=== PATIENT | female | born 1955 | race Caucasian/White ===

== ENCOUNTER → 2016-10-23 | Outpatient (CLI) | payer MEDICAID ==
[~2016-10-23] MED LIST: ACIDOPHILUS PO; ALBUTEROL2.5 MG/3 M IH; BENTYL 20MG20 MG/TAB PO; CHILDREN'S ASPI81 M1; CIPRO 500MG TA500 MG PO; CLEOCIN HC150 MG/CAP PO; CLEOCIN HCL150 M1 PO; CLONAZEPAM0.5 M1 PO; CYCLOBENZAPRINE10 MG PO; HYDROXYZINE HYD50 M1 PO; IBUPROFEN800 MG PO; IMODIUM 2MG CAPS2 MG PO; KLONOPIN0.5 MG PO; KLONOPIN1 MG PO; LAMICTAL25 MG PO; LEXAPRO5 MG PO; METRONIDAZOLE500 MG PO; MIRTAZAPINE15 MG PO; NORCO 325 MG-51 TA1 PO; NORCO 325 MG-51 TAB PO; ONDANSETRON4 M1 PO; PRILOSEC 20MG20 MG PO; PROAIR RESPICL90 MCG IH; SIMVASTATIN20 MG PO; SINGULAIR10 MG PO; WELLBUTRIN SR150 M1 PO; ZOFRAN ODT8 MG PO
== END ==
LOC: RAD 08:18
DX: M79.642 Pain in left hand (principal)

== ENCOUNTER → 2016-10-28 | Outpatient (CLI) | payer MEDICAID | LOC: RAD 08:04 | DX: M25.542 Pain in joints of left hand (principal) ==

== ENCOUNTER → 2017-01-31 | Outpatient (CLI) | payer MEDICAID ==
[~2017-01-31] VITALS: Ht 167.6 cm; Wt 73.2 kg
[2017-01-31 15:51] VITALS: BP 136/96
[2017-01-31 19:54] VITALS: BP 92/60
== END ==
LOC: AMSURD 15:43
DX: E86.0 Dehydration (principal); R11.2 Nausea with vomiting, unspecified; R51 Headache
CPT/HCPCS: J0696; J1885; J2405; J7030

== ENCOUNTER → 2017-04-07 | Outpatient (CLI) | payer MEDICAID ==
[2017-01-31 19:54] VITALS: BP 92/60
== END ==
LOC: RAD 07:18
DX: M25.542 Pain in joints of left hand (principal); M25.541 Pain in joints of right hand

== ENCOUNTER → 2017-04-22 | Outpatient (CLI) | payer MEDICAID ==
[2017-01-31 19:54] VITALS: BP 92/60
== END ==
LOC: MAMMO 09:10
DX: Z12.31 Encounter for screening mammogram for malignant neoplasm of breast (principal)
CPT/HCPCS: G0202

== ENCOUNTER 2018-03-26 10:00 | Outpatient (RCR) | payer MEDICAID ==
[2017-01-31 19:54] VITALS: BP 92/60
== END 2018-03-26 10:30 | disposition home or self-care (01) ==
LOC: OT 10:00
DX: Z47.1 Aftercare following joint replacement surgery (principal); Z96.691 Finger-joint replacement of right hand

== ENCOUNTER 2018-05-19 11:30 | Outpatient (RCR) | payer MEDICAID ==
[2017-01-31 19:54] VITALS: BP 92/60
== END 2018-05-19 12:00 | disposition home or self-care (01) ==
LOC: OT 11:30
DX: Z47.89 Encounter for other orthopedic aftercare (principal)

== ENCOUNTER 2019-02-28 12:47 | Emergency (ER) | payer MEDICAID ==
[~2019-02-28] VITALS: Ht 167.6 cm; Wt 70.9 kg
[2019-02-28] MEDS ORDERED: ZOVIRAX400 M1 PO (13:10)
[2019-02-28] MEDS ORDERED: ALBUTEROL2.5 MG/3 M IH (13:14)
[2019-02-28] MEDS ORDERED: IPRATROPIUM BROM3 M1 IH (13:15)
[2019-02-28] MEDS ORDERED: WELLBUTRIN XL150 M2 PO (13:15)
[2019-02-28] MEDS ORDERED: ZYRTEC ALLERGY10 MG PO (13:16)
[2019-02-28] MEDS ORDERED: DICLOFENAC SOD100 GM TP (13:18)
[2019-02-28] MEDS ORDERED: VOLTAREN 75 DR75 MG PO (13:19)
[2019-02-28] MEDS ORDERED: BENTYL 20MG20 MG/TAB PO (13:23)
[2019-02-28] MEDS ORDERED: FENOFIBRATE MI134 MG PO (13:24)
[2019-02-28] MEDS ORDERED: FLUTICASON0.05 MG/AC NS (13:26)
[2019-02-28] MEDS ORDERED: HYDROXYZINE HYD50 M1 PO (13:28)
[2019-02-28] MEDS ORDERED: OMEPRAZOLE40 MG PO (13:29)
[2019-02-28] MEDS ORDERED: VITAMIN B12 PO (13:30)
[2019-02-28 14:40] VITALS: BP 130/86
== END 2019-02-28 14:37 | disposition home or self-care (01) ==
LOC: ED 12:47
DX: M25.561 Pain in right knee (principal); F31.9 Bipolar disorder, unspecified; F41.9 Anxiety disorder, unspecified; E89.0 Postprocedural hypothyroidism; K58.9 Irritable bowel syndrome, unspecified; Z90.710 Acquired absence of both cervix and uterus; Z79.82 Long term (current) use of aspirin; Z79.51 Long term (current) use of inhaled steroids

== ENCOUNTER → 2019-05-12 | Outpatient (CLI) | payer MEDICAID ==
[~2019-05-12] MED LIST changes: +DICLOFENAC SOD100 GM TP; +FENOFIBRATE MI134 MG PO; +FLUTICASON0.05 MG/AC NS; +IPRATROPIUM BROM3 M1 IH; +OMEPRAZOLE40 MG PO; +VITAMIN B12 PO; +VOLTAREN 75 DR75 MG PO; +WELLBUTRIN XL150 M2 PO; +ZOVIRAX400 M1 PO; +ZYRTEC ALLERGY10 MG PO
== END ==
LOC: RAD 08:10
DX: M17.11 Unilateral primary osteoarthritis, right knee (principal); M25.861 Other specified joint disorders, right knee; Z98.890 Other specified postprocedural states

== ENCOUNTER → 2019-10-13 | Outpatient (CLI) | payer MEDICAID | LOC: RAD 07:30 | DX: M17.11 Unilateral primary osteoarthritis, right knee (principal) ==

== ENCOUNTER 2020-02-11 09:30 | Outpatient (RCR) | payer MEDICAID | END 2020-02-11 10:00 | disposition still patient (30) | LOC: PT 09:30 | DX: M25.561 Pain in right knee (principal); Z96.651 Presence of right artificial knee joint ==

== ENCOUNTER → 2020-05-24 | Outpatient (CLI) | payer MEDICAID | LOC: RAD 07:30 | DX: Z47.1 Aftercare following joint replacement surgery (principal); Z96.651 Presence of right artificial knee joint ==

== ENCOUNTER → 2020-06-27 | Outpatient (CLI) | payer MEDICAID | LOC: MAMMO 11:20 | DX: Z12.31 Encounter for screening mammogram for malignant neoplasm of breast (principal) ==

== ENCOUNTER → 2020-07-06 | Day surgery (SDC) | payer MEDICAID | LOC: MSO 06:56 | DX: Z12.11 Encounter for screening for malignant neoplasm of colon (principal); Z86.010 Personal history of colon polyps; Z88.0 Allergy status to penicillin; J44.9 Chronic obstructive pulmonary disease, unspecified; D64.9 Anemia, unspecified; Z90.710 Acquired absence of both cervix and uterus; F17.210 Nicotine dependence, cigarettes, uncomplicated | CPT/HCPCS: 00812; J2704; J7120 ==

== ENCOUNTER → 2020-12-13 | Outpatient (CLI) | payer MEDICARE, MEDICAID | LOC: RAD 09:30 | DX: M17.12 Unilateral primary osteoarthritis, left knee (principal); M19.042 Primary osteoarthritis, left hand; Z96.651 Presence of right artificial knee joint ==

== ENCOUNTER 2021-01-18 10:04 | Outpatient (RCR) | payer MEDICARE, MEDICAID | END 2021-04-18 | disposition still patient (30) | LOC: OT | DX: M25.542 Pain in joints of left hand (principal) ==

== ENCOUNTER → 2021-08-21 | Outpatient (CLI) | payer MEDICARE, MEDICAID | LOC: MAMMO 14:28 | DX: Z12.31 Encounter for screening mammogram for malignant neoplasm of breast (principal) ==

== ENCOUNTER → 2021-12-06 | Outpatient (CLI) | payer MEDICARE, MEDICAID | LOC: RAD 14:20 | DX: J06.9 Acute upper respiratory infection, unspecified (principal) ==

== ENCOUNTER 2022-02-05 13:54 | Emergency (ER) | payer MEDICARE, MEDICAID ==
[~2022-02-05] VITALS: Ht 167.6 cm; Wt 71.8 kg
[2022-02-05] MEDS ORDERED: CLONAZEPAM0.5 M1 PO ×2 (14:26→14:27)
[2022-02-05] MEDS ORDERED: WELLBUTRIN XL150 M2 PO (14:26)
[2022-02-05] MEDS ORDERED: LAMOTRIGINE100 M3 PO (14:27)
[2022-02-05] MEDS ORDERED: ONDANSETRON ODT8 MG PO (14:29)
[2022-02-05] MEDS ORDERED: FEXOFENADINE HY60 MG PO (14:30)
[2022-02-05] MEDS ORDERED: FEXOFENADINE H180 M1 PO (14:33)
[2022-02-05] MEDS ORDERED: SINGULAIR 110 MG/TAB PO (14:34)
[2022-02-05 15:36] LABS: BASO # 0.11 K/mm3 (0.02-0.10); EOS # 0.34 K/mm3 (0.04-0.40); EOS % 2.8 % (1.0-5.0); HEMATOCRIT 36.1 % (37.0-47.0); HEMOGLOBIN 11.8 g/dL (12.5-16.0); LYMPH# 3.32 K/mm3 (1.50-4.00); MEAN CELL VOLUME 88 fl (78-100); MEAN CORPUSCULAR HEMOGLOBIN 29 pg (27-31); MEAN CORPUSCULAR HGB CONC 33 g/dL (33-37); MEAN PLATELET VOLUME 9.6 fl (7.4-10.4); MONO # 1.26 K/mm3 (0.20-0.80); NEU # 6.87 K/mm3 (1.40-6.50); PLATELET COUNT 354 K/mm3 (130-400); RED BLOOD COUNT 4.12 M/mm3 (4.10-5.30); RED CELL DISTRIBUTION WIDTH 14.6 % (11.5-14.5)
[2022-02-05 15:59] LABS: ALBUMIN 4.3 g/dL (3.4-4.8); POTASSIUM 3.6 mmol/L (3.5-5.1); SODIUM 139 mmol/L (136-145)
[2022-02-05 16:01] LABS: CALCIUM 9.6 mg/dL (8.3-10.5)
[2022-02-05 16:02] LABS: GLUCOSE 72 mg/dL (65-105); TOTAL PROTEIN 6.8 g/dL (6.2-8.1)
[2022-02-05 16:03] LABS: CARBON DIOXIDE 24 mmol/L (23-31)
[2022-02-05 16:04] LABS: TOTAL BILIRUBIN 0.3 mg/dL (0.2-1.2)
[2022-02-05 16:07] LABS: AST-SGOT 15 U/L (5-34)
[2022-02-05 16:08] LABS: ALT/SGPT 14 U/L (0-55)
[2022-02-05 16:21] LABS: TROPONIN-I < 0.030 ng/mL (<0.030)
[2022-02-05 16:28] LABS: URINE APPEARANCE CLEAR; URINE BILIRUBIN NEGATIVE (NEGATIVE); URINE BLOOD 50 ery/uL (NEGATIVE); URINE COLOR YELLOW; URINE GLUCOSE NEGATIVE (NEGATIVE); URINE KETONE NEGATIVE (NEGATIVE); URINE LEUKOCYTE ESTERASE NEGATIVE (NEGATIVE); URINE NITRATE NEGATIVE (NEGATIVE); URINE PROTEIN(semi-quant) TRACE (NEGATIVE); URINE UROBILINOGEN NORMAL (NORMAL); URINE WBC 0-1 /hpf (0-3)
[2022-02-05 16:29] LABS: URINE MUCUS PRESENT (NOT PRESENT)
[2022-02-05 16:40] LABS: PROTHROMBIN TIME 10.4 SECONDS (9.0-12.0)
[2022-02-05] MEDS ORDERED: ANTIVERT12.5 M1 PO (17:19)
[2022-02-05 17:42] VITALS: BP 157/107
== END 2022-02-05 17:42 | disposition home or self-care (01) ==
LOC: ED 13:54
PROVIDERS: Physician Assistant
DX: R42 Dizziness and giddiness (principal); R11.0 Nausea; F17.210 Nicotine dependence, cigarettes, uncomplicated
CPT/HCPCS: J7030

== ENCOUNTER → 2022-03-13 | Outpatient (CLI) | payer MEDICARE, MEDICAID ==
[~2022-03-13] MED LIST changes: +ANTIVERT12.5 M1 PO; +FEXOFENADINE H180 M1 PO; +FEXOFENADINE HY60 MG PO; +LAMOTRIGINE100 M3 PO; +ONDANSETRON ODT8 MG PO; +SINGULAIR 110 MG/TAB PO
== END ==
LOC: RAD 12:42
DX: R10.9 Unspecified abdominal pain (principal)

== ENCOUNTER → 2022-11-11 | Outpatient (CLI) | payer MEDICARE, MEDICAID | LOC: RAD 12:57 | DX: J32.4 Chronic pansinusitis (principal) ==

== ENCOUNTER → 2023-09-30 | Outpatient (CLI) | payer MEDICARE, MEDICAID ==
[~2023-09-30] MED LIST changes: +MACROBID 100 M100 MG PO
== END ==
LOC: RAD 14:36
DX: J32.4 Chronic pansinusitis (principal)

== ENCOUNTER → 2023-11-21 | Outpatient (CLI) | payer MEDICARE, MEDICAID | LOC: RAD 07:45 | DX: R10.11 Right upper quadrant pain (principal); R05.3 Chronic cough ==

== ENCOUNTER → 2023-12-03 | Outpatient (CLI) | payer MEDICARE, MEDICAID ==
[~2023-12-03] MED LIST changes: +Iohexol 300 - 100 ML VIAL IV ONE
== END ==
LOC: RAD 10:45
DX: R10.821 Right upper quadrant rebound abdominal tenderness (principal)
CPT/HCPCS: Q9967

== ENCOUNTER → 2024-02-24 | Outpatient (CLI) | payer MEDICARE, MEDICAID ==
[~2024-02-24] MED LIST changes: -Iohexol 300 - 100 ML VIAL IV ONE
== END ==
LOC: MAMMO 10:47
DX: Z12.31 Encounter for screening mammogram for malignant neoplasm of breast (principal); Z13.820 Encounter for screening for osteoporosis

== ENCOUNTER → 2024-02-24 | Outpatient (CLI) | payer MEDICARE, MEDICAID | LOC: RAD 10:51 | DX: Z13.820 Encounter for screening for osteoporosis (principal); Z12.31 Encounter for screening mammogram for malignant neoplasm of breast; M85.852 Other specified disorders of bone density and structure, left thigh; M85.851 Other specified disorders of bone density and structure, right thigh ==

== ENCOUNTER → 2024-03-10 | Outpatient (CLI) | payer MEDICARE, MEDICAID | LOC: RAD 09:24 | DX: M17.12 Unilateral primary osteoarthritis, left knee (principal) ==

== ENCOUNTER 2024-10-21 19:16 | Emergency (ER) | payer MEDICARE, MEDICAID ==
[~2024-10-21] VITALS: Ht 167.6 cm; Wt 71.8 kg
[2024-10-21] MEDS ORDERED: Ketorolac 30 MG/ML VIAL IM ONE (19:30)
[2024-10-21 19:44] LABS: BASO # 0.04 K/mm3 (0.02-0.10); EOS # 0.04 K/mm3 (0.04-0.40); EOS % 0.5 % (1.0-5.0); HEMATOCRIT 34.7 % (37.0-47.0); HEMOGLOBIN 11.2 g/dL (12.5-16.0); LYMPH# 0.65 K/mm3 (1.50-4.00); MEAN CELL VOLUME 89 fl (78-100); MEAN CORPUSCULAR HEMOGLOBIN 29 pg (27-31); MEAN CORPUSCULAR HGB CONC 32 g/dL (33-37); MEAN PLATELET VOLUME 9.5 fl (7.4-10.4); NEU # 6.57 K/mm3 (1.40-6.50); PLATELET COUNT 307 K/mm3 (130-400); RED BLOOD COUNT 3.92 M/mm3 (4.10-5.30); RED CELL DISTRIBUTION WIDTH 14.6 % (11.5-14.5)
[2024-10-21 19:48] LABS: ALBUMIN 4.1 g/dL (3.4-4.8); SODIUM 138 mmol/L (136-145)
[2024-10-21 19:49] LABS: CALCIUM 9.5 mg/dL (8.3-10.5)
[2024-10-21 19:50] LABS: GLUCOSE 103 mg/dL (65-105)
[2024-10-21 19:51] LABS: TOTAL PROTEIN 7.2 g/dL (6.2-8.1)
[2024-10-21 19:52] LABS: CARBON DIOXIDE 21 mmol/L (23-31); TOTAL BILIRUBIN 0.2 mg/dL (0.2-1.2)
[2024-10-21 19:54] LABS: PH-URINE 5.5 (5.0 - 8.0); URINE APPEARANCE SLIGHTLY CLOUDY (CLEAR); URINE BILIRUBIN NEGATIVE (NEGATIVE); URINE BLOOD 2+ (NEGATIVE); URINE COLOR YELLOW (YELLOW); URINE GLUCOSE NEGATIVE (NEGATIVE); URINE KETONE NEGATIVE (NEGATIVE); URINE LEUKOCYTE ESTERASE NEGATIVE (NEGATIVE); URINE NITRATE NEGATIVE (NEGATIVE); URINE PROTEIN(semi-quant) NEGATIVE (NEGATIVE)
[2024-10-21 19:55] LABS: URINE MUCUS PRESENT (NOT PRESENT)
[2024-10-21 19:56] LABS: AST-SGOT 18 U/L (5-34)
[2024-10-21 19:57] LABS: ALT/SGPT 15 U/L (0-55)
[2024-10-21 20:04] LABS: TROPONIN-I < 0.030 ng/mL (0.00-0.033)
[2024-10-21] MEDS ORDERED: MACROBID 100 M100 MG PO (20:27)
[2024-10-21] MEDS ORDERED: HYDROCODONE-CH115 ML PO (20:27)
[2024-10-21] MEDS ORDERED: TAMIFLU 75MG75 MG PO (20:27)
[2024-10-21] MEDS ORDERED: Oseltamivir 75 MG CAP PO ONE (20:30)
[2024-10-21] MEDS ORDERED: HYDROcodone/Chlorphen Polst ER Susp 10-8 MG/5 ML UD PO ONE (20:30)
[2024-10-21] MEDS ORDERED: cefTRIAXone 1 G,Lidocaine 2.1 ML IM ONE (20:30)
[2024-10-21 20:56] VITALS: BP 121/92
== END 2024-10-21 20:56 | disposition home or self-care (01) ==
LOC: ED 19:16
PROVIDERS: Family Medicine
DX: J10.1 Influenza due to other identified influenza virus with other respiratory manifestations (principal); N39.0 Urinary tract infection, site not specified; Z85.51 Personal history of malignant neoplasm of bladder; Z86.73 Personal history of transient ischemic attack (TIA), and cerebral infarction without residual deficits; Z88.1 Allergy status to other antibiotic agents; Z88.2 Allergy status to sulfonamides
CPT/HCPCS: J0696; J1885